=== PATIENT | female | born 1940 | race Caucasian/White ===

== ENCOUNTER 2017-05-11 13:36 | Inpatient (IN) | payer OTHER ==
[~2017-05-11] VITALS: Ht 157.5 cm; Wt 41.0 kg
[2017-05-11] MEDS ORDERED: SODIUM CHLORIDE 0.9% 1,000 ML IV ONE (13:44)
[2017-05-11] MEDS ORDERED: IPRATROPIUM BROM 0.5 MG/2.5ML INH SOL NEB ONE (13:45)
[2017-05-11] MEDS ORDERED: ALBUTEROL SULF 2.5 MG/0.5ML(0.5%) NEB SOLN NEB ONE (13:45)
[2017-05-11] MEDS ORDERED: methylPREDNISolone SOD SUCC 125 MG/2 ML VL IV ONE (14:00)
[2017-05-11 14:23] LABS: Basophils # (auto) 0.1 uL; Basophils % (auto) 1.2 % (0.0-2.0); Eosinophils # (auto) 0.4 uL; Eosinophils % (auto) 3.9 % (0.0-7.0); Hematocrit 32.9 % (36.0-46.0); Hemoglobin 10.7 g/dL (12.2-16.2); Lymphocytes # (auto) 0.5 uL; Lymphocytes % (auto) 3.9 % (10.0-50.0); Mean Corpuscular Hemoglobin 27.4 pg (28.0-32.0); Mean Corpuscular Hgb Conc. 32.5 g/dL (32.0-36.0); Mean Corpuscular Volume 84.2 fL (80.0-100.0); Monocytes # (auto) 1.3 uL; Monocytes % (auto) 11.1 % (0.0-12.0); Neutrophils # (auto) 9.3 uL; Neutrophils % (auto) 79.9 % (37.0-80.0); Platelet Count (auto) 368 10^3/uL (140-450); Red Blood Cells 3.91 10^6/uL (4.0-5.20); Red Cell Distribution Width 16.7 % (11.8-14.3); White Blood Cell 11.6 10^3/uL (4.4-10.8)
[2017-05-11 14:36] LABS: Partial Thromboplastin Time 29.2 sec (22.64-33.71); Prothrombin Time 10.9 sec (9.37-12.3)
[2017-05-11 14:56] LABS: Albumin 3.4 g/dL (3.4-5.0); BUN/Creatinine Ratio 17.1; Bilirubin, Total 0.5 mg/dL (0.2-1.0); Potassium 4.4 mmol/L (3.5-5.1); Total Protein 7.3 g/dL (6.4-8.2)
[2017-05-11] MEDS ORDERED: ENOXAPARIN SOD 60 MG/0.6 ML SYRINGE SC ONE (16:30)
[2017-05-11] MEDS ORDERED: FUROSEMIDE 40 MG/4 ML VIAL IV ONE (16:30)
[2017-05-11] MEDS ORDERED: POTASSIUM CHL 10 Meq TABLET PO ONE (16:30)
[2017-05-11] MEDS ORDERED: ACETAMINOPHEN/CODEINE#3 (300/30mg) TAB PO PRN (16:45)
[2017-05-11] MEDS ORDERED: LORazepam 0.5 MG TAB PO PRN (16:45)
[2017-05-11] MEDS ORDERED: ALUM & MAG HYDROX-SIMETH LIQ(MAALOX) 30 ML PO ONE (16:45)
[2017-05-11] MEDS ORDERED: ACETAMINOPHEN 325 MG TAB PO PRN (16:45)
[2017-05-11] MEDS ORDERED: ZOLPIDEM TARTRATE 5 MG TAB PO PRN (16:45)
[2017-05-11] MEDS ORDERED: ONDANSETRON HCL 4 MG/2 ML VIAL IV PRN (16:45)
[2017-05-11] MEDS ORDERED: NITROGLYCERIN 0.4 MG SL TAB SL PRN ×2 (16:45)
[2017-05-11] MEDS ORDERED: MORPHINE SULFATE 4 MG/ML SYR/VIAL IV PRN ×2 (16:45)
[2017-05-11] MEDS ORDERED: ENOXAPARIN SOD 60 MG/0.6 ML SYRINGE SC SCH (17:00)
[2017-05-11] MEDS: ALBUTEROL SULF 2.5 MG/0.5ML(0.5%) NEB SOLN NEB SCH (17:58)
[2017-05-11] MEDS: IPRATROPIUM BROM 0.5 MG/2.5ML INH SOL NEB SCH (17:58)
[2017-05-11] MEDS ORDERED: ENALAPRIL MALEATE 2.5 MG TAB PO SCH (22:00)
[2017-05-11] MEDS: hydrALAZINE HCL 25 MG TAB PO SCH (22:00)
[2017-05-11] MEDS: SODIUM CHLOR 0.9% PF (SALINE LOCK) 10ML VIAL IV SCH (22:12)
[2017-05-11] MEDS: ATORVASTATIN 20 MG TAB PO SCH (22:17)
[2017-05-12] VITALS (8 sets, daily range): BP systolic 134–157; BP diastolic 81–97
[2017-05-12] MEDS ORDERED: POM PO (01:32)
[2017-05-12] MEDS ORDERED: TIOT17SP IN (01:32)
[2017-05-12] MEDS ORDERED: METO-159 PO (01:32)
[2017-05-12] MEDS ORDERED: ALBUAER3 IN (01:32)
[2017-05-12] MEDS ORDERED: POM (01:32)
[2017-05-12] MEDS ORDERED: AMLO10TA2 PO (01:32)
[2017-05-12] MEDS ORDERED: HYDR50TA15 PO (01:32)
[2017-05-12] MEDS: hydrALAZINE HCL 25 MG TAB PO SCH ×3 (06:04→21:56)
[2017-05-12 06:28] LABS: Basophils # (auto) 0 uL; Basophils % (auto) 0.3 % (0.0-2.0); Eosinophils # (auto) 0 uL; Eosinophils % (auto) 0.1 % (0.0-7.0); Hematocrit 30.6 % (36.0-46.0); Hemoglobin 10.2 g/dL (12.2-16.2); Lymphocytes # (auto) 0.3 uL; Lymphocytes % (auto) 5.7 % (10.0-50.0); Mean Corpuscular Hgb Conc. 33.4 g/dL (32.0-36.0); Mean Corpuscular Volume 83.7 fL (80.0-100.0); Monocytes # (auto) 0.2 uL; Monocytes % (auto) 3.2 % (0.0-12.0); Neutrophils # (auto) 5.1 uL; Neutrophils % (auto) 90.7 % (37.0-80.0); Nucleated Red Blood Cells % 0.1 %; Platelet Count (auto) 297 10^3/uL (140-450); Red Blood Cells 3.66 10^6/uL (4.0-5.20); Red Cell Distribution Width 16.5 % (11.8-14.3); White Blood Cell 5.6 10^3/uL (4.4-10.8)
[2017-05-12] MEDS: IPRATROPIUM BROM 0.5 MG/2.5ML INH SOL NEB SCH ×4 (06:42→18:58)
[2017-05-12] MEDS: ALBUTEROL SULF 2.5 MG/0.5ML(0.5%) NEB SOLN NEB SCH ×2 (06:42)
[2017-05-12 07:12] LABS: Albumin 3.1 g/dL (3.4-5.0); BUN/Creatinine Ratio 18.2; Bilirubin, Total 0.6 mg/dL (0.2-1.0); Calcium 8.8 mg/dL (8.5-10.1); Magnesium 2.5 mg/dL (1.6-2.6); Potassium 4.2 mmol/L (3.5-5.1); Total Protein 6.5 g/dL (6.4-8.2)
[2017-05-12] MEDS: SODIUM CHLOR 0.9% PF (SALINE LOCK) 10ML VIAL IV SCH ×3 (07:21→21:56)
[2017-05-12] MEDS ORDERED: POTASSIUM CHL 20 Meq TABLET PO ONE (09:00)
[2017-05-12] MEDS ORDERED: POTASSIUM CHL 10 Meq TABLET PO SCH (10:00)
[2017-05-12] MEDS ORDERED: amLODIPine BESYLATE 5 MG TAB PO SCH (10:00)
[2017-05-12] MEDS ORDERED: CLOPIDOGREL BISULFATE 75 MG TAB PO SCH (10:00)
[2017-05-12] MEDS ORDERED: FUROSEMIDE 40 MG/4 ML VIAL IV SCH (10:00)
[2017-05-12] MEDS: DOCUSATE SOD 100 MG CAP PO SCH (10:59)
[2017-05-12] MEDS: ASPirin 81 mg TAB PO SCH (10:59)
[2017-05-12] MEDS: ENOXAPARIN SOD 60 MG/0.6 ML SYRINGE SC SCH (10:59)
[2017-05-12] MEDS: ISOSORBIDE MONONITRATE 60 MG TAB PO SCH (11:00)
[2017-05-12] MEDS: FUROSEMIDE 40 MG/4 ML VIAL IV SCH ×2 (11:03→18:39)
[2017-05-12] MEDS: ATORVASTATIN 20 MG TAB PO SCH (21:56)
[2017-05-13] VITALS: BP 157/89
[2017-05-13] MEDS: IPRATROPIUM BROM 0.5 MG/2.5ML INH SOL NEB SCH ×4 (00:16→19:05)
[2017-05-13 05:57] LABS: Basophils # (auto) 0 uL; Basophils % (auto) 0.2 % (0.0-2.0); Eosinophils # (auto) 0 uL; Eosinophils % (auto) 0.2 % (0.0-7.0); Hematocrit 29.6 % (36.0-46.0); Lymphocytes # (auto) 0.8 uL; Lymphocytes % (auto) 5.7 % (10.0-50.0); Mean Corpuscular Hemoglobin 27.8 pg (28.0-32.0); Mean Corpuscular Hgb Conc. 33.6 g/dL (32.0-36.0); Mean Corpuscular Volume 82.6 fL (80.0-100.0); Monocytes # (auto) 1.4 uL; Monocytes % (auto) 9.9 % (0.0-12.0); Neutrophils # (auto) 11.5 uL; Platelet Count (auto) 397 10^3/uL (140-450); Red Blood Cells 3.59 10^6/uL (4.0-5.20); Red Cell Distribution Width 16.4 % (11.8-14.3); White Blood Cell 13.7 10^3/uL (4.4-10.8)
[2017-05-13 06:32] LABS: BUN/Creatinine Ratio 23.5; Calcium 9.2 mg/dL (8.5-10.1); Potassium 3.4 mmol/L (3.5-5.1)
[2017-05-13] MEDS: hydrALAZINE HCL 25 MG TAB PO SCH ×4 (06:44→23:37)
[2017-05-13] MEDS: SODIUM CHLOR 0.9% PF (SALINE LOCK) 10ML VIAL IV SCH ×3 (06:45→23:59)
[2017-05-13] MEDS: FUROSEMIDE 40 MG/4 ML VIAL IV SCH ×2 (06:45→18:00)
[2017-05-13 07:30] VITALS: BP 170/114
[2017-05-13] MEDS ORDERED: cloNIDine HCL 0.1 MG TAB PO ONE (08:30)
[2017-05-13] MEDS ORDERED: cefTRIAXone 1GM/10ml IVPUSH 10 ML IV ONE (09:15)
[2017-05-13] MEDS: ASPirin 81 mg TAB PO SCH (10:00)
[2017-05-13] MEDS ORDERED: ENOXAPARIN SOD 30 MG/0.3 ML SYRINGE SC SCH (10:00)
[2017-05-13] MEDS: POTASSIUM CHL 10 Meq TABLET PO SCH ×2 (10:00→23:59)
[2017-05-13] MEDS: DOCUSATE SOD 100 MG CAP PO SCH (10:00)
[2017-05-13] MEDS: ISOSORBIDE MONONITRATE 60 MG TAB PO SCH (10:00)
[2017-05-13] MEDS ORDERED: AZITHROMYCIN 250 MG TAB PO SCH (10:00)
[2017-05-13 11:48] VITALS: BP 171/92
[2017-05-13] MEDS: ENOXAPARIN SOD 60 MG/0.6 ML SYRINGE SC SCH (13:58)
[2017-05-13 15:47] VITALS: BP 139/87
[2017-05-13] MEDS ORDERED: POTASSIUM CHLORIDE 20 MEQ, LIDOCAINE 1% (LOCAL ANESTH.) 2 ML in SODIUM CHL 0.9% 100 ML IV ONE (17:15)
[2017-05-13 21:43] VITALS: BP 150/93
[2017-05-13] MEDS: ATORVASTATIN 20 MG TAB PO SCH (23:58)
[2017-05-14] MEDS: IPRATROPIUM BROM 0.5 MG/2.5ML INH SOL NEB SCH
[2017-05-14] MEDS ORDERED: METOPROLOL TARTRATE 1MG/1ML-5ML VIAL IV ONE (02:30)
[2017-05-14] MEDS ORDERED: cefTRIAXone 1GM/10ml IVPUSH 10 ML IV SCH (09:00)
[2017-06-05] MEDS ORDERED: PRO10T PO (13:09)
[2017-06-05] MEDS ORDERED: BISA5TAB PR (13:09)
[2017-06-05] MEDS ORDERED: LORA-655 PO (13:09)
[2017-06-05] MEDS ORDERED: POTA10TA34 PO (13:09)
[2017-06-05] MEDS ORDERED: FURO40TA PO (13:09)
[2017-06-05] MEDS ORDERED: HAL5T PO (13:09)
[2017-06-05] MEDS ORDERED: MORP15TA PO (13:09)
[2017-06-05] MEDS ORDERED: HYDR-4683 PO (13:09)
[2017-06-05] MEDS ORDERED: SENN-58 PO (13:09)
[2017-06-05] MEDS ORDERED: ASPI-231 PO (13:09)
== END 2017-05-14 03:30 | disposition short-term general hospital (02) | DRG 280 ==
LOC: ER 13:36 → TELE 13:37 → DOU IN ICU 05-12 00:09 → TELE-DOU 05-13 17:00 → TELE-EAST 05-13 17:34
PROVIDERS: ADMIT Internal Medicine; ATTEND Internal Medicine
DX: I13.0 Hypertensive heart and chronic kidney disease with heart failure and stage 1 through stage 4 chronic kidney disease, or unspecified chronic kidney disease (principal); I21.4 Non-ST elevation (NSTEMI) myocardial infarction; I50.43 Acute on chronic combined systolic (congestive) and diastolic (congestive) heart failure; J96.21 Acute and chronic respiratory failure with hypoxia; N18.4 Chronic kidney disease, stage 4 (severe); J44.1 Chronic obstructive pulmonary disease with (acute) exacerbation; J44.9 Chronic obstructive pulmonary disease, unspecified; E78.5 Hyperlipidemia, unspecified; E11.22 Type 2 diabetes mellitus with diabetic chronic kidney disease; I25.10 Atherosclerotic heart disease of native coronary artery without angina pectoris; I35.0 Nonrheumatic aortic (valve) stenosis; G47.10 Hypersomnia, unspecified; Z90.710 Acquired absence of both cervix and uterus
CPT/HCPCS: 36415; 36600; 71045; 80048; 80053; 80061; 82805; 83036; 83605; 83735; 83880; 84443; 84484; 85025; 85610; 85730; 87040; 87081; 93005; 93306; 94640; 96361; 96374; 99291; J2001